=== PATIENT | male | born 1945 | race Caucasian/White ===

== ENCOUNTER → 2021-02-20 | Outpatient (CLI) | payer MEDICARE, OTHER | LOC: M.CT 12:00 | PROVIDERS: ATTEND Registered Nurse Diabetes Educator | DX: N28.1 Cyst of kidney, acquired (principal); I70.0 Atherosclerosis of aorta; R19.7 Diarrhea, unspecified; N40.0 Benign prostatic hyperplasia without lower urinary tract symptoms; M47.816 Spondylosis without myelopathy or radiculopathy, lumbar region ==